=== PATIENT | female | born 1995 | race Caucasian/White ===

== ENCOUNTER 2017-05-21 17:44 | Emergency (ER) | payer OTHER ==
--- NOTE | 2017-05-21 18:20 | ERNOTE ---
Upper Extremity HPI - Narrative Date of Service: 05/21/17 - General Extremities Pain Location: hand: right Time Seen by Provider: 05/21/17 17:52 Source: patient Exam Limitations: no limitations - Immun/Allergies/Home Medications Immunizations: IMMUNIZATION HX Immunizations Up to Date Yes Allergies/Adverse Reactions: Allergies Allergy/AdvReac Type Severity Reaction Status Date / Time venom-honey bee Allergy Severe Anaphylaxis Verified 05/21/17 17:50 [bee venom (honey bee)] amoxicillin trihydrate Allergy Verified 05/21/17 17:50 [From Augmentin] potassium clavulanate Allergy Verified 05/21/17 17:50 [From Augmentin] cefaclor AdvReac Verified 05/21/17 17:50 clarithromycin [From Biaxin] AdvReac Verified 05/21/17 17:50 clindamycin AdvReac Verified 05/21/17 17:50 Home Medications: HOME MEDICATIONS Albuterol Sulfate [Albuterol Sulfate 0.63 MG/3ML] 0.63 mg IH 05/21/17 [Last Taken Unknown] Montelukast Sodium [Singulair] 10 mg PO DAILY 05/21/17 [Last Taken Unknown] Naproxen [Naprosyn] 500 mg PO BID PRN #60 tab 05/21/17 [Last Taken Unknown] Ranitidine HCl [Acid Ic Designer Custom] 150 mg PO DAILY 05/21/17 [Last Taken Unknown] - History of Present Illness Narrative: pt. comes in with c/o r hand pain after her hand got caught between her car door just prior to arrival. Pt. denies any SOB, CP, NVD, fever, numbness or tingling. Review of Systems - Review of Systems Constitutional: Present: no symptoms reported. Absent: recent illness, fever, chills, weakness, fatigue, malaise EYE: Present: no symptoms reported ENT: Present: no symptoms reported Respiratory: Absent: no symptoms reported, shortness of breath, cough, wheezing Cardiology: Present: no symptoms reported. Absent: chest pain, edema Gastrointestinal/Abdominal: Present: no symptoms reported. Absent: nausea, vomiting, diarrhea, abdominal pain Genitourinary: Present: no symptoms reported. Absent: frequency, decreased urinary output Musculoskeletal: Present: joint pain - R hand. Absent: back pain Skin: Present: no symptoms reported. Absent: rash, change in hair/nails Neurological: Present: no symptoms reported. Absent: headache, dizziness/light- headedness, numbness, tingling All Other Systems: All systems neg except as marked - Patient's Past Medical History Patient History - Medical: ADHD Patient History - Cardiac/Respiratory: No pertinent hx Patient History - Cancer: No Hx of Cancer Patient History - Surgical Procedures: , Orthopedic - Social History Smoking Status: Never smoker Have you smoked in the past 12 months: No Alcohol Use: occasionally - Immunizations Immunizations Up to Date: Yes Physical Exam - Physical Exam General Appearance: Present: wd/wn, alert, no apparent distress Eye Exam: Normal inspection: bilateral, PERRL: bilateral, EOMI: bilateral Respiratory: Present: no respiratory distress, normal breath sounds, no accessory muscle use, chest nontender, lungs clear Cardiovascular/Chest: Present: regular rate, rhythm, no murmur, normal peripheral pulses Extremity Exam: Present: decreased range of motion, bony tenderness - R hand diffuse. Absent: joint swelling, extremity edema Neurological Exam: Present: alert, oriented, normal mood/affect, no motor/ sensory deficits Skin Exam: Present: normal color, warm/dry. Absent: pallor, skin rash ED Progress - Vital Signs Patient's Vital Signs:: I have reviewed the patient's vital signs. Vital Signs: Vital Signs 05/21/17 17:47 Temperature 37.1 C Pulse Rate 87 Respiratory 10 L Rate Blood Pressure 126/69 O2 Sat by Pulse 96 Oximetry - X-Ray X-Ray #1 X-Ray: hand Interpretation: Interp. by me X-ray Comments: equivocal lucency through cortical bone R prox 5th metatarsal. Possible fracture correlates with point tenderness. Will splint pt. hand and have her follow up with ortho in 2-3 days - Progress/Reassessment Chief Complaint: Hand Injury/Pain Departure Clinical Impression: Right hand fracture Qualifiers: Encounter type: initial encounter Fracture type: closed Qualified Code(s): S62.91XA - Unspecified fracture of right wrist and hand, initial encounter for closed fracture - Departure Disposition: Home self-care Condition: Good Instructions: Hand Contusion, Metacarpal Fracture, [id number] Additional Instructions: Please follow up with Orthopedics by calling office and they will call you back with appointment Referrals: Alexander Delgado MD [Primary Care Provider] - Nazario Rushing MD [Staff Physician] - Prescriptions: Naproxen [Naprosyn] 500 mg PO BID PRN #60 tab PRN Reason: Pain
[2017-05-21 18:47] VITALS: BP 126/64
== END 2017-05-21 18:40 | disposition home or self-care (01) ==
LOC: ER 17:44
PROC: 2W3EX1Z Immobilization of Right Hand using Splint (ICD-10-PCS; principal; 2017-05-21)
DX: S62.91XA Unspecified fracture of right hand, initial encounter for closed fracture (principal); X58.XXXA Exposure to other specified factors, initial encounter; Y93.9 Activity, unspecified; Y92.410 Unspecified street and highway as the place of occurrence of the external cause

== ENCOUNTER 2019-10-29 08:00 | Inpatient (IN) ==
[~2019-10-29 08:00] MED LIST: ACETAMINOPHEN 120 MG SUPP.RECT RC ONE
[2019-10-30] MEDS ORDERED: OXYTOCIN 20 UNITS in RINGER'S SOLUTION,LACTATED 1,000 ML IV ONE (05:07)
[2019-10-30] MEDS ORDERED: VANCOMYCIN HCL 1 GM in DEXTROSE 5 % IN WATER 250 ML IV ONE ×2 (05:07)
[2019-10-30] MEDS ORDERED: WATER IV ONE ×2 (05:07)
[2019-10-30] MEDS ORDERED: DEXTROSE 5% IV ONE ×2 (05:07)
[2019-10-30] MEDS ORDERED: GENTAMICIN SULFATE IV ONE ×2 (05:07)
[2019-10-30] MEDS: RINGER'S SOLUTION,LACTATED 1,000 ML IV PRN ×2 (05:43→06:41)
[2019-10-30] MEDS ORDERED: ceFAZolin SODIUM/DEXTROSE,ISO 2 GM/50 ML BAG IV ONE (05:53)
[2019-10-30] MEDS ORDERED: ceFAZolin SODIUM 1 GM VIAL IV PRN (06:00)
[2019-10-30 06:38] LABS: Cocaine Ur Negative (NEGATIVE); Urine Barbiturate Negative (NEGATIVE); Urine Benzodiazepines Negative (NEGATIVE); Urine Opiates Negative (NEGATIVE); Urine PCP Negative (NEGATIVE); Urine THC Negative (NEGATIVE)
[2019-10-30] MEDS ORDERED: ceFAZolin SODIUM 1 GM VIAL ONE (07:19)
--- NOTE | 2019-10-30 07:24 | ANES ---
Anesthesia Pre Procedure Eval Vitals/Labs: Last Vital Signs Temp 36.5 C 10/30/19 05:57 Pulse 92 10/30/19 05:57 Resp 16 10/30/19 05:57 BP 118/74 10/30/19 05:57 Pulse Ox 98 10/30/19 05:57 HOME MEDICATIONS albuterol sulfate 2.5 mg IH QID PRN 06/29/18 [Last Taken Unknown] epinephrine 0.3 mg/0.3 mL injection, auto-injector 0.3 mg IM ONCE PRN ea 06/29/18 [Last Taken Unknown] albuterol sulfate 90 mcg/actuation aerosol inhaler 2 inh IH Q6H PRN #8.5 g 07/09/18 [Last Taken Unknown] Albuterol Sulfate [Ventolin HFA] 1 puff INHALATION Q6H PRN #1 inhaler 11/04/18 [Last Taken Unknown] acetaminophen 500 mg tablet 500 mg PO Q6H PRN 03/29/19 [Last Taken Unknown] prenat.vits,jennifer,jgo-dnsj-inghe 1 tab PO DAILY 03/29/19 [Last Taken Unknown] docusate sodium 100 mg capsule 100 mg PO DAILY 07/05/19 [Last Taken Unknown] ferrous sulfate 325 mg (65 mg iron) tablet 325 mg PO DAILY 07/05/19 [Last Taken Unknown] loratadine 10 mg tablet See Rx Instructions .ROUTE .COMPLEX #30 tablet 07/28/19 [Last Taken Unknown] calcium carbonate 300 mg (750 mg) chewable tablet 300 mg PO QID PRN 10/26/19 [Last Taken Unknown] Allergies/Adverse Reactions: Allergies Allergy/AdvReac Type Severity Reaction Status Date / Time cefaclor Allergy Severe hives Verified 10/30/19 05:28 clarithromycin [From Biaxin] Allergy Severe hives Verified 10/30/19 05:28 clindamycin Allergy Severe hives Verified 10/30/19 05:28 venom-honey bee Allergy Severe Anaphylaxis Verified 10/30/19 05:28 [bee venom (honey bee)] amoxicillin [From Augmentin] Allergy Vomiting Verified 10/30/19 05:28 clavulanic acid Allergy Vomiting Verified 10/30/19 05:28 [From Augmentin] gain detergent Allergy Uncoded 10/30/19 05:28 - Planned Procedure Planned Procedure: Repeat Section with poss abdominal scar r Medication List Reviewed:: Yes Allergies Verified: Yes Medical History (Last Reviewed 10/30/19 @ 07:18 by Arben Buckner CRNA) (Acute) Asthma, mild intermittent (Chronic) Onset Date: ~02/22/10 Anemia (Chronic) Onset Date: ~08/15/16 w/ Anxiety Onset Date: Unknown Chondromalacia, patella Onset Date: ~03/30/10 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, 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 Onset Date: ~05/21/17 Heart murmur Onset Date: Unknown at - closed on its own Insect bite Onset Date: ~04/26/09 honey bee, local reaction Reactive airway disease Onset Date: ~08/21/06 Seborrheic dermatitis Onset Date: ~10/02/04 Short stature Onset Date: ~04/26/09 Sinusitis Onset Date: ~08/21/06 Upper respiratory infection Onset Date: ~11/29/05 Varicella without mention of complication Onset Date: ~11/18/02 Abdominal pain (Resolved) Acute asthma (Resolved) Onset Date: ~10/26/12 No hospitalizations Allergic rhinitis (Resolved) Onset Date: ~09/14/14 Ankle sprain (Resolved) Bronchospasm (Resolved) Onset Date: ~10/26/12 Contusion (Resolved) Cough (Resolved) Dysuria (Resolved) Foot sprain (Resolved) GERD (gastroesophageal reflux disease) (Resolved) Onset Date: ~09/29/12 Otitis media, acute (Resolved) Onset Date: ~01/08/13 Rash (Resolved) Right foot sprain (Resolved) Right hand fracture (Resolved) Scabies (Resolved) Onset Date: ~04/06/13 Sciatica of left side (Resolved) Strep throat (Resolved) Tobacco abuse (Resolved) Onset Date: ~05/25/14 Uses oral contraceptives (Resolved) Onset Date: Unknown Surgical History (Last Reviewed 10/30/19 @ 07:19 by Arben Buckner CRNA) Previous section (Chronic) H/O tooth extraction Onset Date: ~03/2019 History of eye surgery Onset Date: Unknown Fixed eyelashes that were growing into the eyes Previous section Onset Date: ~11/13/16 Failed induction, failure to progress S/P tube myringotomy Onset Date: Unknown S/P wrist surgery Onset Date: ~2008 left wrist pin placement Status post primary low transverse section (Resolved) Family History (Last Reviewed 10/30/19 @ 07:19 by Arben Buckner CRNA) Grandfather Heart disease Hypertension Kidney disease CVA (cerebral vascular accident) Diabetes Thyroid disease Grandmother Heart disease Hypertension Kidney disease CVA (cerebral vascular accident) Thyroid disease Father Diabetes Mother Alive and well - Family Anesthesia History Family History:: no untoward family reactions to anesthesia, no familial bleeding tendencies, no family history of clotting disorders, no family history of premature - Airway/Neck/Teeth Teeth Condition: missing Mallampatti Score: 1 Thyromental (T-M) distance: > 6 cm Mandibulo Hyoid distance: > 3 cm - Respiratory Respiratory History: asthma Respiratory Physical: lungs clear Smoking Status: Former smoker Discussed smoking cessation including day of surgery: No Sleep Apnea currently treated: No Sleep Apnea by current assessment: No Discussed Risks/Treatment of SETH: No - Cardiovascular Tolerate Activity: Good Heart Sounds: S1 & S2, Regular - Anesthesia Assessment and Plan ASA Class: PS, II Anesthesia Type Plan: Spinal, Epidural - Bilateral ultrasound guided TAP block for posrop analgesia
[2019-10-30] MEDS ORDERED: PROPOFOL VIAL IV ONE (07:27)
[2019-10-30] MEDS ORDERED: GLYCOPYRROLATE 0.2 MG/ML VIAL ONE (07:27)
[2019-10-30] MEDS ORDERED: BUPIVACAINE HCL/EPINEPHRINE 50 ML VIAL ONE (07:27)
[2019-10-30] MEDS ORDERED: MIDAZOLAM HCL/PF 5 MG/ML VIAL ONE (07:27)
[2019-10-30] MEDS ORDERED: NEOSTIGMINE METHYLSULFATE 1 MG/ML VIAL ONE (07:27)
[2019-10-30] MEDS ORDERED: ONDANSETRON HCL/PF 2 MG/ML VIAL ONE (07:27)
[2019-10-30] MEDS ORDERED: fentaNYL CITRATE/PF 50 MCG/ML AMPUL ONE (07:27)
--- NOTE | 2019-10-30 09:04 | OR ---
Operative Report - Dictated Report Narrative: Indication: 23-year-old with prior section desires repeat section. status: Planned Pre Operative Diagnosis: 39-1/7-week intrauterine . Prior section. Post Operative Diagnosis: Same. Procedure: Repeat low transverse section. Surgeon: Tammy Gamble DO Planner Intern: OR Staff Anesthesia: Spinal, TAP block Estimated Blood Loss: 300 mL Urine Output: 50 mL clear urine Fluids Replacement: 1900 mL of crystalloid Drains: Estrella to gravity Surgical Complications: None Specimens: Placenta to freezer Findings: Female born at 0802 on 10/30/2019 with Apgars 9 and 9, weighing 3459 g in cephalic presentation. Normal uterus, tubes, ovaries Technique: The patient was taken to the operating room and placed in dorsal supine position with a left lateral tilt. After adequate spinal anesthesia, estrella catheter inserted, SCDs placed, and 2 g of Ancef given preoperatively, the abdominal cavity was entered using sharp and blunt dissection. Two rolled laps were placed in the pericolic gutters on either side of the uterus. A transverse incision was made in the lower uterine segment and extended laterally and upwardly with digital traction. Clear fluid was noted upon amniotomy. The infant was delivered easily. The cord was clamped and cut and was handed off to awaiting studio musician. The placenta was allowed to deliver spontaneously. The uterus was cleared of clot and debris. Uterine incision was closed with 0 Vicryl using a running stitch. A second imbricating layer was placed. Excellent hemostasis was noted. The rolled laps were removed from the abdominal cavitiy. The peritoneum was closed with a running 3-0 Monocryl. The same suture was used to approximate the rectus and pyramidalis muscles. The fascia was closed with a running 0 Vicryl. The subcutaneous layer was closed with a running 3-0 Monocryl. The same suture was used to approximate the subdermal layer. The skin was closed with a running 4-0 Monocryl and Dermabond. Sponge, lap, needle, and instrument count were correct x 2. Disposition: To post anesthesia care unit in good condition History for History for Definition: * The number of deliveries resulting in a live the patient experienced prior to current hospitalization * The previous delivery of live twins or any live multiple gestation is considered one live event. *If primagravida or nulliparous is documented select zero for the number of previous live births. Live Events: Live Events: 1
--- NOTE | 2019-10-30 09:05 | ANES ---
Post Anesthesia Discharge - Transfer of Care Transfer of Care handoff given to nurse: Yes - Discharge from PACU Discharge from PACU when meets criteria: Yes - Discharge to ASU Discharge to ASU-no complications/pt stable: Yes
--- NOTE | 2019-10-30 09:06 | ANES ---
Post Anesthesia Assessment - Vital Signs Vitals: Last Vital Signs Temp 36.6 C 10/30/19 08:50 Pulse 74 10/30/19 09:00 Resp 16 10/30/19 09:00 BP 102/58 10/30/19 08:55 Pulse Ox 100 10/30/19 09:00 Airway Patency: Normal - Mental Status Level Of Consciousness: Awake - Pain Level Pain Score: 0 - N/V Assessment Nausea/Vomiting Presence: None Dehydration:: No
--- NOTE | 2019-10-30 09:06 | ANES ---
Anesthesia Procedure Note Procedure Note: ANESTHESIA PROCEDURE NOTE Date of Procedure: 10/30/2019. Time of procedure: 08. Performed by: Arben Buckner CRNA Automation Analyst: None. Preprocedure diagnosis: Repeat . Post procedure diagnosis: Same. Procedure: Bilateral ultrasound-guided transversus abdominis plane block for postop analgesia. Indications: The patient is a 23-year-old female post section. Findings: See below. Details of the procedure: ChloraPrep was used on the patient's abdomen and the procedure was performed under sterile technique. The right abdominal fascial layer between the internal oblique muscle and the transversus abdominis muscles was identified under ultrasound guidance. A 21-gauge 4 inch block needle was inserted under ultrasound guidance to the target fascial plane. 15 mL's of 0.5% bupivacaine plus epinephrine 1:200,000 was injected after negative aspiration for blood. The needle was removed intact and the procedure was then repeated at the left side. No complications were noted. The images were retained in the hospital medical database . EBL: Minimal. Fluids: N/A. Specimen: N/A. Post procedure condition: The patient tolerated the procedure well. No complications were noted. Thank you for this consultation. Arben Buckner CRNA
[2019-10-30] MEDS ORDERED: OXYTOCIN/DEXTROSE 5%-WATER 30 UNITS/500 ML BAG IV ONE (09:40)
[2019-10-30] MEDS ORDERED: RINGER'S SOLUTION,LACTATED 1,000 ML IV ONE (10:30)
[2019-10-30] MEDS ORDERED: SIMETHICONE 80 MG TAB.CHEW PO PRN (10:45)
[2019-10-30] MEDS ORDERED: ACETAMINOPHEN 325 MG TABLET PO PRN (10:45)
[2019-10-30] MEDS ORDERED: BISACODYL 10 MG SUPP.RECT RC PRN (10:45)
[2019-10-30] MEDS ORDERED: ONDANSETRON HCL/PF 2 MG/ML VIAL IV PRN (10:45)
[2019-10-30] MEDS ORDERED: SENNOSIDES 8.6 MG TABLET PO PRN (10:45)
--- NOTE | 2019-10-30 10:45 | PN ---
Progess Note - Interim Date: 10/30/19 Time: 10:40 Narrative: 10/30/19 10:40 Called to see patient for excess vaginal bleeding. Nurse states patient had lost approximately 385 mL of blood. Uterus was 2+ above the umbilicus. Order was given to start Pitocin at 20 milliunits/min. Manual extraction of approximately 678 mL of clotted blood. Uterus now firm and at umbilicus -2 with minimal bleeding. We will continue Pitocin for the entire bag and monitor closely for further bleeding.
[2019-10-30] MEDS ORDERED: ALBUTEROL SULFATE 2.5 MG/0.5 ML VIAL.NEB IH PRN (10:49)
[2019-10-30] MEDS ORDERED: Epipen 0.3 MG IM PRN (10:49)
[2019-10-30] MEDS ORDERED: IBUPROFEN 800 MG TABLET ONE (10:50)
[2019-10-30] MEDS ORDERED: oxyCODONE HCL/ACETAMINOPHEN 1 TAB TABLET ONE (10:50)
[2019-10-30] MEDS: IBUPROFEN 800 MG TABLET PO PRN ×2 (10:52→17:51)
[2019-10-30] MEDS: oxyCODONE HCL/ACETAMINOPHEN 1 TAB TABLET PO PRN ×4 (10:52→20:54)
[2019-10-30] MEDS: DOCUSATE SODIUM 100 MG CAPSULE PO SCH ×2 (14:47→20:54)
[2019-10-30] MEDS: FERROUS SULFATE 325 MG TABLET PO SCH (17:50)
[2019-10-31] MEDS: oxyCODONE HCL/ACETAMINOPHEN 1 TAB TABLET PO PRN ×8 (00:03→22:03)
[2019-10-31] MEDS: IBUPROFEN 800 MG TABLET PO PRN ×4 (00:03→18:53)
[2019-10-31] MEDS: DOCUSATE SODIUM 100 MG CAPSULE PO SCH ×3 (07:04→22:04)
[2019-10-31] MEDS: PRENATAL VITS96/IRON FUM/FOLIC 1 TAB TABLET PO SCH (08:23)
[2019-10-31] MEDS: FERROUS SULFATE 325 MG TABLET PO SCH ×2 (08:23→16:53)
--- NOTE | 2019-10-31 09:42 | PN ---
Subjective - Date and Time Seen Date: 10/31/19 Time: 09:41 Objective - Vitals Vitals: Last Vital Signs Temp 37.1 C 10/31/19 07:10 Pulse 86 10/31/19 07:10 Resp 18 10/31/19 07:10 BP 111/69 10/31/19 07:10 Pulse Ox 99 10/31/19 07:10 Patient denies complaints. Tolerating regular diet. Ambulating without difficulty. Pain well controlled. No lightheaded or dizziness lochia wnl. Abdomen - soft, appropriately tender Incision -clean, dry, intact uterus - firm, at umbilicus -1 no calf tenderness Impression: Post op day #1 s/p repeat section. hemorrhage due to uterine atony - resolved Plan: Continue routine post-operative/ care Cauti Physician Documentation - Urinary Catheter Management Urethral (Pappas) Date of Insertion: 10/30/19 Time of Insertion: 07:45
[2019-10-31] MEDS: ENOXAPARIN SODIUM 40 MG/0.4 ML SYRG SC SCH (18:02)
[2019-11-01] MEDS: IBUPROFEN 800 MG TABLET PO PRN ×4 (01:38→22:43)
[2019-11-01] MEDS: oxyCODONE HCL/ACETAMINOPHEN 1 TAB TABLET PO PRN ×5 (01:38→22:43)
[2019-11-01] MEDS: FERROUS SULFATE 325 MG TABLET PO SCH ×2 (08:26→16:48)
[2019-11-01] MEDS: PRENATAL VITS96/IRON FUM/FOLIC 1 TAB TABLET PO SCH (08:26)
[2019-11-01] MEDS: DOCUSATE SODIUM 100 MG CAPSULE PO SCH ×2 (08:26→20:12)
--- NOTE | 2019-11-01 08:43 | PN ---
Subjective - Date and Time Seen Date: 11/01/19 Time: 08:41 Objective - Vitals Vitals: Last Vital Signs Temp 36.6 C 11/01/19 06:45 Pulse 83 11/01/19 06:45 Resp 18 11/01/19 06:45 BP 114/66 11/01/19 06:45 Pulse Ox 98 11/01/19 06:45 Patient denies complaints. Ambulating well. Tolerating regular diet. Pain well controlled. Lochia wnl. Abdomen - soft, appropriately tender Incision -clean, dry, intact uterus - firm, at umbilicus -2 no calf tenderness Impression: Post op day #2 s/p repeat section. Plan: Continue routine post-operative/ care Cauti Physician Documentation - Urinary Catheter Management Urethral (Pappas) Date of Insertion: 10/30/19 Time of Insertion: 07:45
[2019-11-01] MEDS: ENOXAPARIN SODIUM 40 MG/0.4 ML SYRG SC SCH (16:49)
[2019-11-02] MEDS: oxyCODONE HCL/ACETAMINOPHEN 1 TAB TABLET PO PRN ×2 (02:10→06:55)
[2019-11-02] MEDS: IBUPROFEN 800 MG TABLET PO PRN (06:54)
--- NOTE | 2019-11-02 07:21 | PN ---
Subjective - Date and Time Seen Date: 11/02/19 Time: 07:20 Objective - Vitals Vitals: Last Vital Signs Temp 36.9 C 11/01/19 11:06 Pulse 77 11/02/19 01:05 Resp 18 11/02/19 01:05 BP 111/67 11/02/19 01:05 Pulse Ox 97 11/02/19 01:05 Patient denies complaints. Ambulating without difficulty. Tolerating regular diet. Pain well controlled. Bottlefeeding Lochia wnl. Abdomen - soft, appropriately tender Incision -clean, dry, intact uterus - firm, at umbilicus -3 no calf tenderness Impression: Post op day #3 s/p repeat section. hemorrhage- resolved Plan: Routine discharge instructions. Continue iron supplement for 6 months. Cauti Physician Documentation - Urinary Catheter Management Urethral (Pappas) Date of Insertion: 10/30/19 Time of Insertion: 07:45
[2019-11-02 07:26] VITALS: BP 117/69
[2019-11-02] MEDS: FERROUS SULFATE 325 MG TABLET PO SCH (09:11)
[2019-11-02] MEDS: PRENATAL VITS96/IRON FUM/FOLIC 1 TAB TABLET PO SCH (09:11)
[2019-11-02] MEDS: DOCUSATE SODIUM 100 MG CAPSULE PO SCH (09:12)
== END 2019-11-02 10:15 | disposition home or self-care (01) | DRG 832 ==
LOC: OB 10-30 05:04
PROVIDERS: ADMIT Obstetrics & Gynecology; ATTEND Obstetrics & Gynecology
CPT/HCPCS: 59025; 80307; J2405